=== PATIENT | male | born 1990 | race American Indian/Alaskan Native ===

== ENCOUNTER 2018-05-13 02:56 | Emergency (ER) | payer OTHER ==
[2018-05-13] MEDS ORDERED: FLEXERIL ONE (05:15)
[2018-05-13] MEDS ORDERED: MOTRIN ONE (05:16)
[2018-05-13] MEDS ORDERED: MOTRIN PO ONE (05:20)
[2018-05-13] MEDS ORDERED: FLEXERIL PO ONE (05:20)
[2018-05-13] MEDS ORDERED: TYLENOL PO ONE (07:46)
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
[2018-05-13 08:16] VITALS: BP 143/83
--- NOTE | 2018-05-13 09:07 | XRay Report ---
THORACIC SPINE, 2 VIEWS: HISTORY: back pain. Normal bone mineralization. No evidence for compression deformity, malalignment, or bone lesion. The posterior ribs are intact. The paraspinal soft tissues are within normal limits. IMPRESSION: Thoracic spine within normal limits.
--- NOTE | 2018-05-13 09:07 | XRay Report ---
LUMBOSACRAL SPINE, 3 VIEWS: History: Back pain Findings: The vertebral bodies, disk spaces and posterior elements are intact. No compression deformity or malalignment. The SI joints are symmetric and unremarkable. Impression: 1. No evidence for acute injury to the lumbar spine.
== END 2018-05-13 09:15 | disposition home or self-care (01) ==
LOC: ED 02:56
DX: M54.5 Low back pain (principal); V89.2XXA Person injured in unspecified motor-vehicle accident, traffic, initial encounter; Y93.89 Activity, other specified; Y92.89 Other specified places as the place of occurrence of the external cause; Y99.8 Other external cause status
CPT/HCPCS: 72072; 72100; 99283